=== PATIENT | male | born 1960 | race American Indian/Alaskan Native ===

== ENCOUNTER 2016-08-30 12:39 | Emergency (ER) | payer MEDICAID | END 2016-08-30 13:50 | disposition left against medical advice (07) | LOC: ED 12:39 | DX: M54.9 Dorsalgia, unspecified (principal); Z53.21 Procedure and treatment not carried out due to patient leaving prior to being seen by health care provider ==

== ENCOUNTER 2016-10-01 04:19 | Emergency (ER) | payer MEDICAID ==
[2016-10-01 05:16] LABS: Basophils % (Auto) 0.4 % (0.0-1.8); Eosinophils % (Auto) 4.3 % (0.0-4.3); Hematocrit 47.8 % (35.5-45.6); Hemoglobin 16.3 gm/dl (11.8-15.2); Mean Corpuscular HGB Conc 34 % (32-34); Mean Corpuscular Hemoglobin 31 pg (28-32); Mean Corpuscular Volume 91 fl (84-94); Platelet Count 169 K/mm3 (140-440); Red Blood Count 5.27 M/mm3 (3.65-5.03); Red Cell Distribution Width 13.6 % (13.2-15.2); White Blood Count 6.6 K/mm3 (4.5-11.0)
[2016-10-01 05:38] LABS: Alanine Aminotransferase 22 units/L (7-56); Albumin 3.8 g/dL (3.9-5); Albumin/Globulin Ratio 1.3 %; Alkaline Phosphatase 83 units/L (35-129); Anion Gap 21 mmol/L; BUN/Creatinine Ratio 13.75; Blood Urea Nitrogen 11 mg/dL (9-20); Calcium 8.7 mg/dL (8.4-10.2); Carbon Dioxide 19 mmol/L (22-30); Chloride 100.8 mmol/L (98-107); Glucose 139 mg/dL (75-100); Lipase 42 units/L (13-60); Potassium 3.7 mmol/L (3.6-5.0); Sodium 137 mmol/L (137-145); Total Protein 6.8 g/dL (6.3-8.2)
[2016-10-01 06:15] LABS: Bilirubin,Urine NEG (Negative); Blood,Urine SM (Negative); Ketones,Urine NEG (Negative); Leukocyte Esterase,Urine NEG (Negative); Nitrite,Urine NEG (Negative); Protein,Urine <15 mg/dL mg/dL (Negative); Urobilinogen,Urine < 2.0 mg/dL (<2.0)
--- NOTE | 2016-10-01 08:11 | Emergency Department Report ---
ED Abdominal Pain HPI - General Chief Complaint: Abdominal Pain Stated Complaint: ABDOMINAL PAIN Time Seen by Provider: 10/01/16 07:54 Source: patient, family Mode of arrival: Ambulatory Limitations: No Limitations - History of Present Illness Initial Comments: Patient here complaining of abdominal pain since yesterday. He said he had episode of stool. Patient says she is feeling bloated but he has bowel movement. He said he went to [facility] [place] yesterday for symptoms without any improvement. Denies any fever or chills. Pain is 10 out of 10 located all over. Patient is a history of pancreatitis. Denies any nausea vomiting. He said he does not drink alcohol any more since he found out that he had pancreatitis. Denies blood in stool or recent travel outside the country. Patient has a history of COPD diabetes acid reflux and hypertension. He also had pancreatitis increased cholesterol and chronic back and left knee pain. He had a pancreatic stent placed in July 2013 at [facility]. He said they didn't do anything at [facility] yesterday and he is here for follow-up because he is not feeling better. She has been here multiple time for abdominal pain complaints and pain in various places. MD Complaint: abdominal pain -: year(s) Location: diffuse Radiation: none Migration to: no migration Severity: severe Severity scale (0 -10): 10 Quality: aching, burning Improves With: nothing Worsens With: movement Context: other (this is chronic for patient) Associated Symptoms: diarrhea. denies: nausea, vomiting, fever, chills, constipation, dysuria, hematemesis, hematochezia, melena, hematuria, anorexia, syncope - Related Data Home Medications Medication Instructions Recorded Confirmed Last Taken Glimepiride [Amaryl] 2 mg PO QAM 03/14/14 02/21/16 1 Day Ago Albuterol Sulfate [Proventil HFA] 1 - 2 puff IH Q4H PRN 11/16/14 02/21/16 1 Day Ago Losartan [Cozaar] 50 mg PO QDAY 11/16/14 02/21/16 1 Day Ago Mometasone Furoate [Nasonex] 2 spray NS QDAY 03/17/15 02/21/16 1 Day Ago Loratadine [Claritin] 10 mg PO DAILY 08/05/15 02/21/16 1 Day Ago Tamsulosin [Flomax] 0.4 mg PO QDAY 09/05/15 02/21/16 1 Day Ago Budesoni/Formotero 160-4.5(Nf) 2 puff IH BID 02/21/16 02/21/16 1 Day Ago [Symbicort 160-4.5 (Nf)] Finasteride [Proscar] 5 mg PO QDAY 02/21/16 02/21/16 1 Day Ago Omeprazole 20 mg PO Q12HR 02/21/16 02/21/16 1 Day Ago buPROPion SR [Wellbutrin SR] 150 mg PO BID 02/21/16 02/21/16 1 Day Ago Previous Rx's Medication Instructions Recorded Last Taken Type Oxycodone HCl/Acetaminophen 1 each PO TID PRN #20 tablet 09/05/15 1 Day Ago Rx [Percocet 10/325 mg] Zolpidem [Ambien] 10 mg PO QHS #7 tab 12/03/15 1 Day Ago Rx traMADol [Ultram 50 MG tab] 50 mg PO Q6HR PRN #12 tablet 10/01/16 Unknown Rx Allergies Allergy/AdvReac Type Severity Reaction Status Date / Time aspirin Allergy Shortness Verified 05/22/15 16:44 of Breath ketorolac tromethamine Allergy Shortness Verified 05/22/15 16:44 [From Toradol] of Breath Penicillins Allergy Unknown Verified 05/22/15 16:44 ED Review of Systems ROS: Stated complaint: ABDOMINAL PAIN Other details as noted in HPI Comment: All other systems reviewed and negative Constitutional: denies: chills, fever ENT: denies: throat pain Respiratory: no symptoms reported Cardiovascular: denies: chest pain, palpitations, edema, syncope Gastrointestinal: abdominal pain, diarrhea. denies: nausea, vomiting, constipation, hematemesis, melena, hematochezia Genitourinary: denies: urgency, dysuria, frequency, hematuria, discharge, testicular pain, testicular mass Skin: denies: rash Neurological: denies: headache, weakness, numbness, paresthesias, confusion, abnormal gait, vertigo ED Past Medical Hx - Past Medical History Previous Medical History?: Yes Hx Hypertension: Yes Hx Diabetes: Yes Hx GERD: Yes Hx COPD: Yes Additional medical history: pancreatitis, hyperlipidemia, Chronic Back Pain, Left Knee pain - Surgical History Past Surgical History?: Yes Additional Surgical History: Pancreatic stent july 2013/ done at [facility] - Family History Family history: hypertension - Social History Smoking Status: Current Every Day Smoker Substance Use Type: None - Medications Home Medications: Home Medications Medication Instructions Recorded Confirmed Last Taken Type Glimepiride [Amaryl] 2 mg PO QAM 03/14/14 02/21/16 1 Day Ago History Albuterol Sulfate [Proventil HFA] 1 - 2 puff IH Q4H PRN 11/16/14 02/21/16 1 Day Ago History Losartan [Cozaar] 50 mg PO QDAY 11/16/14 02/21/16 1 Day Ago History Mometasone Furoate [Nasonex] 2 spray NS QDAY 03/17/15 02/21/16 1 Day Ago History Loratadine [Claritin] 10 mg PO DAILY 08/05/15 02/21/16 1 Day Ago History Oxycodone HCl/Acetaminophen 1 each PO TID PRN #20 tablet 09/05/15 02/21/16 1 Day Ago Rx [Percocet 10/325 mg] Tamsulosin [Flomax] 0.4 mg PO QDAY 09/05/15 02/21/16 1 Day Ago History Zolpidem [Ambien] 10 mg PO QHS #7 tab 12/03/15 02/21/16 1 Day Ago Rx Budesoni/Formotero 160-4.5(Nf) 2 puff IH BID 02/21/16 02/21/16 1 Day Ago History [Symbicort 160-4.5 (Nf)] Finasteride [Proscar] 5 mg PO QDAY 02/21/16 02/21/16 1 Day Ago History Omeprazole 20 mg PO Q12HR 02/21/16 02/21/16 1 Day Ago History buPROPion SR [Wellbutrin SR] 150 mg PO BID 02/21/16 02/21/16 1 Day Ago History traMADol [Ultram 50 MG tab] 50 mg PO Q6HR PRN #12 tablet 10/01/16 Unknown Rx ED Physical Exam - General Limitations: No Limitations General appearance: alert, in no apparent distress - Head Head exam: Present: atraumatic, normocephalic, normal inspection - Eye Eye exam: Present: normal appearance, PERRL, EOMI Pupils: Present: normal accommodation - ENT ENT exam: Present: normal exam, normal orophraynx, mucous membranes moist, TM's normal bilaterally, normal external ear exam - Neck Neck exam: Present: normal inspection, full ROM. Absent: tenderness, meningismus, lymphadenopathy - Respiratory Respiratory exam: Present: normal lung sounds bilaterally. Absent: respiratory distress, chest wall tenderness, accessory muscle use - Cardiovascular Cardiovascular Exam: Present: normal rhythm, tachycardia, normal heart sounds - GI/Abdominal GI/Abdominal exam: Present: soft, distended, tenderness, normal bowel sounds. Absent: guarding, rebound, rigid, hyperactive bowel sounds, organomegaly, mass, bruit, pulsatile mass, hernia - Extremities Exam Extremities exam: Present: normal inspection, full ROM, normal capillary refill. Absent: tenderness, pedal edema, joint swelling, calf tenderness - Back Exam Back exam: Present: normal inspection, full ROM. Absent: tenderness, CVA tenderness (R), CVA tenderness (L), muscle spasm, paraspinal tenderness, vertebral tenderness, rash noted - Neurological Exam Neurological exam: Present: alert, oriented X3, normal gait - Psychiatric Psychiatric exam: Present: normal affect, normal mood - Skin Skin exam: Present: warm, dry, intact, normal color. Absent: rash ED Course Vital Signs 10/01/16 10/01/16 10/01/16 04:26 08:43 10:00 Temperature 97.8 F Pulse Rate 103 H Respiratory 18 16 16 Rate Blood Pressure 133/95 Blood Pressure 133/95 [Left] O2 Sat by Pulse 100 Oximetry 10/01/16 11:11 Temperature Pulse Rate 106 H Respiratory 18 Rate Blood Pressure Blood Pressure 164/81 [Left] O2 Sat by Pulse 97 Oximetry - Reevaluation(s) Reevaluation #1: 10/01/16 10:35 Patient stable throughout ED course: CT scan done and when comparing to CT scan of the abdomen from 2016 there are no significant changes. Lab Values stable. Scan was given morphine at 4 mg increments to a total of 8 mg IV and Zofran 4 mg IV. Reevaluation of abdomen, patient said he feels better and no facial grimacing noted with palpation of abdomen. ED Medical Decision Making - Lab Data Result diagrams: 10/01/16 04:58 10/01/16 04:58 Lab Results 05/19/17 05/19/17 05/19/17 Range/Units 04:58 04:58 05:30 WBC 6.6 (4.5-11.0) K/mm3 RBC 5.27 H (3.65-5.03) M/mm3 Hgb 16.3 H (11.8-15.2) gm/dl Hct 47.8 H (35.5-45.6) % MCV 91 (84-94) fl MCH 31 (28-32) pg MCHC 34 (32-34) % RDW 13.6 (13.2-15.2) % Plt Count 169 (140-440) K/mm3 Lymph % (Auto) 29.3 (13.4-35.0) % Duc[place]ne % (Auto) 9.5 H (0.0-7.3) % Eos % (Auto) 4.3 (0.0-4.3) % Baso % (Auto) 0.4 (0.0-1.8) % Lymph # 1.9 (1.2-5.4) K/mm3 Duchesne # 0.6 (0.0-0.8) K/mm3 Eos # 0.3 (0.0-0.4) K/mm3 Baso # 0.0 (0.0-0.1) K/mm3 Seg Neutrophils % 56.5 (40.0-70.0) % Seg Neutrophils # 3.7 (1.8-7.7) K/mm3 Sodium 137 (137-145) mmol/L Potassium 3.7 (3.6-5.0) mmol/L Chloride 100.8 (98-107) mmol/L Carbon Dioxide 19 L (22-30) mmol/L Anion Gap 21 mmol/L BUN 11 (9-20) mg/dL Creatinine 0.8 (0.8-1.5) mg/dL Estimated GFR > 60 ml/min BUN/Creatinine Ratio 13.75 % Glucose 139 H (75-100) mg/dL Calcium 8.7 (8.4-10.2) mg/dL Total Bilirubin 0.50 (0.1-1.2) mg/dL AST 16 (5-40) units/L ALT 22 (7-56) units/L Alkaline Phosphatase 83 (35-129) units/L Total Protein 6.8 (6.3-8.2) g/dL Albumin 3.8 L (3.9-5) g/dL Albumin/Globulin Ratio 1.3 % Lipase 42 (13-60) units/L Urine Color Yellow (Yellow) Urine Turbidity Clear (Clear) Urine pH 5.0 (5.0-7.0) Ur Specific Lowell 1.009 (1.003-1.030) Urine Protein <15 mg/dl (Negative) mg/dL Urine Glucose (UA) Neg (Negative) mg/dL Urine Ketones Neg (Negative) mg/dL Urine Blood Sm (Negative) Urine Nitrite Neg (Negative) Urine Bilirubin Neg (Negative) Urine Urobilinogen < 2.0 (<2.0) mg/dL Ur Leukocyte Esterase Neg (Negative) Urine WBC (Auto) 1.0 (0.0-6.0) /HPF Urine RBC (Auto) 1.0 (0.0-6.0) /HPF U Epithel Cells (Auto) 1.0 (0-13.0) /HPF - Radiology Data Radiology results: report reviewed CT scan of the abdomen and pelvis today reveal hypodensity of the head of the pancreas measuring 2.8 cm in diameter without significant interval changes from 2016. No dilatation of the pancreas and common bile duct. Hypodensity in the tail of the pancreas measuring 1.8 cm in diameter without interval changes from 2016. He has since had a biopsy done at [facility] and he said there was no acute onset. He has peripancreatic adipose tissue which appears normal. No mass of the adrenal glands. Normal kidneys and bladder. Prostate enlarged but no changes from 2016. No free intraperitoneal fluid or air no evidence of edema past. Seromuscular week abdominal aorta without aneurysm and findings in June 2015 was the same .normal appendix. - Medical Decision Making ED course: Patient here complaining of abdominal pain after being seen at [facility] midw yesterday. He had a couple bouts of diarrhea stool. CT scan today reveals no acute findings compared to CT scan from June 2015. Lipase is normal and other lab work with stable findings. I discussed both the CT scan of abdomen and pelvis with patient, come. CT scan from [address] scan today. He Did get IV contrast today but his BUN and creatinine was normal and he is tolerating oral liquids good. Prior to discharge the patient told me that he is followed by Surgery, GI doctor at [facility] and he goes every 6 months. He told me that they did a biopsy of his pancreatitis since [address] scan and it didn 't show anything that was normal. She should also have a primary care physician which she is following. Labs was all discussed with patient. She received morphine 8 mg total and 4 mg increments for abdominal pain via IV and also 4 mg of IV Zofran. Patient had no episode of diarrhea or vomiting and emergency room. Abdominal pain has subsided to 2 out of 10. I discussed with patient that he needs to follow-up at [facility] as he usually does. Patient discharged home with prescription for Ultram. This case was discussed with Dr. Brown who is the attending physician in emergency room. Critical care attestation.: If time is entered above; I have spent that time in minutes in the direct care of this critically ill patient, excluding procedure time. ED Disposition Clinical Impression: Liver cyst, Pancreatic cyst, Encounter for smoking cessation counseling Abdominal pain Qualifiers: Abdominal location: generalized Qualified Code(s): R10.84 - Generalized abdominal pain Chronic pancreatitis Qualifiers: Pancreatitis type: unspecified pancreatitis type Qualified Code(s): K86.1 - Other chronic pancreatitis Disposition: DISCHARGED TO HOME OR SELFCARE Is pt being admited?: No Does the pt Need Aspirin: No Condition: Stable Instructions: How to Stop Smoking (ED), Pancreatitis (ED), Abdominal Pain (ED) Additional Instructions: Continue Follow-up with your visit [facility]hospital at 6 month intervals. He can take Ultram for pain. Follow-up with primary care physician in 3 days Keep Follow-up appointment at [facility] as discussed. Stop smoking Prescriptions: traMADol [Ultram 50 MG tab] 50 mg PO Q6HR PRN #12 tablet PRN Reason: Pain Referrals: PRIMARY CARE, [Primary Care Provider] - 3-5 Days Forms: Work/School Release Form(ED)
[2016-10-01] MEDS ORDERED: NACL ONE (08:25)
[2016-10-01] MEDS ORDERED: ZOFRAN IV ONE (08:38)
[2016-10-01] MEDS ORDERED: MORPHINE IV ONE ×2 (08:38→09:56)
--- NOTE | 2016-10-01 09:38 | Cat Scan Report ---
CT scan of abdomen and pelvis with IV contrast: Compared to 07/06/15. History: Abdominal pain. Findings: Normal lung bases. No pleural or pericardial effusion. Circumscribed hypodensities in the liver suggestive of cysts without interval change. Normal gallbladder. Normal spleen. Circumscribed hypodensity at head of pancreas measuring 2.9 cm in diameter without significant interval change. No dilatation of pancreatic or common bile duct. Hypodensity in the tail of pancreas measuring 1.8 cm in diameter without interval change. Peripancreatic adipose tissue appears normal. No mass of the adrenal glands. Normal kidney parenchyma and bladder. No interval change in size of prostate No free intraperitoneal fluid or air. No evidence of adenopathy. Atherosclerotic abdominal aorta without aneurysm. Normal appendix. Impression: Findings as detailed above. No significant interval change.
[2016-10-01 11:12] VITALS: BP 164/81
== END 2016-10-01 11:11 | disposition home or self-care (01) ==
LOC: ED 04:19
DX: K76.89 Other specified diseases of liver (principal); K86.2 Cyst of pancreas; R10.84 Generalized abdominal pain; K86.1 Other chronic pancreatitis; E11.9 Type 2 diabetes mellitus without complications; K21.9 Gastro-esophageal reflux disease without esophagitis; J44.9 Chronic obstructive pulmonary disease, unspecified; I10 Essential (primary) hypertension; G89.29 Other chronic pain; F17.200 Nicotine dependence, unspecified, uncomplicated; Z88.6 Allergy status to analgesic agent; Z88.0 Allergy status to penicillin; Z88.8 Allergy status to other drugs, medicaments and biological substances
CPT/HCPCS: 36415; 74177; 80053; 81001; 83690; 85025; 96374; 96375; 96376; 99284; J2270; J2405; Q9967

== ENCOUNTER 2017-03-29 02:28 | Emergency (ER) | payer MEDICAID ==
[2017-03-29 04:22] LABS: Basophils % (Auto) 0.7 % (0.0-1.8); Eosinophils % (Auto) 2.1 % (0.0-4.3); Hematocrit 45.7 % (35.5-45.6); Mean Corpuscular HGB Conc 35 % (32-34); Mean Corpuscular Hemoglobin 33 pg (28-32); Mean Corpuscular Volume 93 fl (84-94); Platelet Count 201 K/mm3 (140-440); Red Blood Count 4.89 M/mm3 (3.65-5.03); White Blood Count 10.4 K/mm3 (4.5-11.0)
[2017-03-29 04:37] LABS: Bilirubin,Urine NEG (Negative); Blood,Urine SM (Negative); Ketones,Urine NEG (Negative); Leukocyte Esterase,Urine NEG (Negative); Mucus,Urine FEW /HPF; Nitrite,Urine NEG (Negative)
[2017-03-29 04:39] LABS: Alanine Aminotransferase 18 units/L (7-56); Albumin 4.2 g/dL (3.9-5); Albumin/Globulin Ratio 1.7 %; Alkaline Phosphatase 92 units/L (35-129); Anion Gap 17 mmol/L; BUN/Creatinine Ratio 13; Blood Urea Nitrogen 9 mg/dL (9-20); Calcium 9.4 mg/dL (8.4-10.2); Carbon Dioxide 26 mmol/L (22-30); Chloride 101.5 mmol/L (98-107); Glucose 126 mg/dL (75-100); Lipase 78 units/L (13-60); Potassium 3.7 mmol/L (3.6-5.0); Sodium 141 mmol/L (137-145); Total Protein 6.7 g/dL (6.3-8.2)
[2017-03-29] MEDS ORDERED: DILAUDID IV ONE ×2 (08:35→10:59)
[2017-03-29] MEDS ORDERED: ZOFRAN IV ONE (08:35)
[2017-03-29] MEDS ORDERED: NACL 0.9% 1000 ML 1,000 ML IV ONE (08:42)
--- NOTE | 2017-03-29 08:42 | Emergency Department Report ---
HPI - General Chief Complaint: Abdominal Pain Time Seen by Provider: 03/29/17 08:20 - HPI HPI: This is a 57-year-old -Cypriot male presents to the emergency department , dropped off by a friend, with complaint of a 4-5 day history of some upper abdominal pain, nausea without vomiting. For the past 2-3 days, the patient has also had some rectal pain. He says that he has a history of this secondary to an enlarged prostate and says that usually he is able to put some lidocaine gel towards the rectum with some relief of his pain but at this time it has not improved. He denies any constipation, diarrhea, penile discharge, dysuria, fever, chest pain or shortness of breath. He did say that he had some sweats going on. He wanted to come in sooner but had to take care of his sick . Once she improved he was able to come in today to be seen. His primary care physician is Dr. Alberts, his remote mortgage underwriter is Dr. martel, and his urologist is a Dr. Betty Plasencia. No recent travel or sick contacts at home. He has a past medical history for COPD, diabetes, GERD, hypertension, chronic pancreatitis, hyperlipidemia. ED Past Medical Hx - Past Medical History Previous Medical History?: Yes Hx Hypertension: Yes Hx Diabetes: Yes Hx GERD: Yes Hx COPD: Yes Additional medical history: pancreatitis, hyperlipidemia, Chronic Back Pain, Left Knee pain - Surgical History Past Surgical History?: Yes Additional Surgical History: Pancreatic stent july 2013/ done at [place] - Social History Smoking Status: Current Every Day Smoker Substance Use Type: None - Medications Home Medications: Home Medications Medication Instructions Recorded Confirmed Last Taken Type Glimepiride [Amaryl] 2 mg PO QAM 03/14/14 02/21/16 1 Day Ago History Albuterol Sulfate [Proventil HFA] 1 - 2 puff IH Q4H PRN 11/16/14 02/21/16 1 Day Ago History Losartan [Cozaar] 50 mg PO QDAY 11/16/14 02/21/16 1 Day Ago History Mometasone Furoate [Nasonex] 2 spray NS QDAY 03/17/15 02/21/16 1 Day Ago History Loratadine [Claritin] 10 mg PO DAILY 08/05/15 02/21/16 1 Day Ago History Oxycodone HCl/Acetaminophen 1 each PO TID PRN #20 tablet 09/05/15 02/21/16 1 Day Ago Rx [Percocet 10/325 mg] Tamsulosin [Flomax] 0.4 mg PO QDAY 09/05/15 02/21/16 1 Day Ago History Zolpidem [Ambien] 10 mg PO QHS #7 tab 12/03/15 02/21/16 1 Day Ago Rx Budesoni/Formotero 160-4.5(Nf) 2 puff IH BID 02/21/16 02/21/16 1 Day Ago History [Symbicort 160-4.5 (Nf)] Finasteride [Proscar] 5 mg PO QDAY 02/21/16 02/21/16 1 Day Ago History Omeprazole 20 mg PO Q12HR 02/21/16 02/21/16 1 Day Ago History buPROPion SR [Wellbutrin SR] 150 mg PO BID 02/21/16 02/21/16 1 Day Ago History HYDROcodone/APAP 5-325 [Hazel 1 each PO Q6HR PRN #12 tablet 03/29/17 Unknown Rx 5/325] Ondansetron [Zofran Odt] 4 mg PO Q8H PRN #10 tab.rapdis 03/29/17 Unknown Rx traMADol [Ultram 50 MG tab] 50 mg PO Q6HR PRN #10 tablet 03/29/17 Unknown Rx ED Review of Systems ROS: Stated complaint: STOMACH,ANAL,PENIS PAIN Other details as noted in HPI Comment: All other systems reviewed and negative Constitutional: diaphoresis. denies: chills, fever Eyes: denies: eye pain, eye discharge, vision change ENT: denies: ear pain, throat pain Respiratory: denies: cough, shortness of breath, wheezing Cardiovascular: denies: chest pain, palpitations Gastrointestinal: abdominal pain, nausea. denies: vomiting Genitourinary: other (rectal pain). denies: dysuria, discharge Musculoskeletal: denies: back pain, joint swelling, arthralgia Skin: denies: rash, lesions Neurological: denies: headache, weakness, paresthesias Physical Exam - Physical Exam Vital Signs: Vital Signs 03/29/17 03:31 Temperature 98.1 F Pulse Rate 88 Respiratory 20 Rate Blood Pressure 141/90 O2 Sat by Pulse 98 Oximetry Physical Exam: GENERAL: The patient is well-developed well-nourished. HENT: Normocephalic. Atraumatic. Patient has moist mucous membranes. EYES: Extraocular motions are intact. Pupils equal reactive to light bilaterally. NECK: Supple. Trachea is midline. CHEST/LUNGS: Clear to auscultation. There is no respiratory distress noted. HEART/CARDIOVASCULAR: Regular. There is no tachycardia. There is no gallop rub or murmur. ABDOMEN: Abdomen is soft. There is some upper abdominal tenderness to palpation. No guarding or rebound tenderness. Patient has normal bowel sounds. There is no abdominal distention. SKIN: Skin is warm and dry. NEURO: The patient is awake, alert, and oriented. The patient is cooperative. The patient has no focal neurologic deficits. The patient has normal speech. MUSCULOSKELETAL: There is no tenderness or deformity. There is no limitation range of motion. There is no evidence of acute injury. RECTAL: There is a very small nonthrombosed external hemorrhoid. Otherwise no mass or lesion seen. ED Course Vital Signs 03/29/17 03:31 Temperature 98.1 F Pulse Rate 88 Respiratory 20 Rate Blood Pressure 141/90 O2 Sat by Pulse 98 Oximetry ED Medical Decision Making - Lab Data Result diagrams: 03/29/17 03:51 03/29/17 Unknown - Radiology Data Radiology results: report reviewed CT scan of abdomen and pelvis with IV contrast: History: abdominal pain, rectal pain. Findings: Normal lung bases. No pleural pericardial effusion. Multiple hypodensities in the liver without significant interval change. Normal gallbladder and spleen. Circumscribed well-defined hypodensity head of the pancreas and tail of the pancreas without interval change in size and configuration. No peripancreatic abnormality. Spleen appears normal. Normal adrenals kidneys and bladder. No free intraperitoneal fluid or air. No evidence of adenopathy. Gaseous colon with moderate volume stool in colon. No evidence of appendicitis or diverticulitis. Impression: No significant interval change compared to previous study. Findings as detailed above - Medical Decision Making 57-year-old male presents with a few days of upper abdominal pain and some rectal pain. Labs are mostly unremarkable. CT of the abdomen and pelvis does not show any significant acute process. There are some chronic incidental findings. There is no mention of any abnormalities regarding the prostate. He was given pain and nausea medication in the emergency department. He was reevaluated multiple times of her multiple hours and is feeling improved. He has good follow-up with primary care, urology and gastroenterology. He was discharged home with encouragement to follow up with these physicians, pain and nausea medication. He will return to the ER with any worsening of symptoms or any acute distress. - Differential Diagnosis pancreatitis, cholecystitis, gastritis, BPH, diverticulitis Critical Care Time: No Critical care attestation.: If time is entered above; I have spent that time in minutes in the direct care of this critically ill patient, excluding procedure time. ED Disposition Clinical Impression: Nausea without vomiting, Rectal pain Abdominal pain Qualifiers: Abdominal location: upper abdomen, unspecified Qualified Code(s): R10.10 - Upper abdominal pain, unspecified Disposition: - TO HOME OR SELFCARE Is pt being admited?: No Condition: Stable Instructions: Acute Nausea and Vomiting (ED), Abdominal Pain (ED) Additional Instructions: Please follow-up with your primary care physician, remote mortgage underwriter, and urologist, as needed. Return to the emergency Department with any worsening of your symptoms or any acute distress. You have been prescribed a medication that is sedating and therefore should not be taken prior to driving, working, and responsible for children and in no way should be mixed with alcohol of any quantity. Prescriptions: HYDROcodone/APAP 5-325 [Hazel 5/325] 1 each PO Q6HR PRN #12 tablet PRN Reason: Pain Ondansetron [Zofran Odt] 4 mg PO Q8H PRN #10 tab.rapdis PRN Reason: Nausea traMADol [Ultram 50 MG tab] 50 mg PO Q6HR PRN #10 tablet PRN Reason: Pain Referrals: PRIMARY MD DANA [Primary Care Provider] - 3-5 Days NAZ MARTEL MD [Staff Physician] - 3-5 Days Time of Disposition: 10:59
--- NOTE | 2017-03-29 09:55 | Cat Scan Report ---
CT scan of abdomen and pelvis with IV contrast: History: abdominal pain, rectal pain. Findings: Normal lung bases. No pleural pericardial effusion. Multiple hypodensities in the liver without significant interval change. Normal gallbladder and spleen. Circumscribed well-defined hypodensity head of the pancreas and tail of the pancreas without interval change in size and configuration. No peripancreatic abnormality. Spleen appears normal. Normal adrenals kidneys and bladder. No free intraperitoneal fluid or air. No evidence of adenopathy. Gaseous colon with moderate volume stool in colon. No evidence of appendicitis or diverticulitis. Impression: No significant interval change compared to previous study. Findings as detailed above
[2017-03-29 11:17] VITALS: BP 136/82
== END 2017-03-29 11:23 | disposition home or self-care (01) ==
LOC: ED 02:28
DX: R10.10 Upper abdominal pain, unspecified (principal); R11.2 Nausea with vomiting, unspecified; R10.2 Pelvic and perineal pain; I10 Essential (primary) hypertension; K21.9 Gastro-esophageal reflux disease without esophagitis; J44.9 Chronic obstructive pulmonary disease, unspecified; F17.200 Nicotine dependence, unspecified, uncomplicated
CPT/HCPCS: 36415; 74177; 80053; 81001; 83690; 85025; 96361; 96374; 96375; 99284; J1170; J2405; J7030; Q9967

== ENCOUNTER 2017-04-03 13:52 | Emergency (ER) | payer MEDICAID ==
[2017-04-03 14:44] LABS: Basophils % (Auto) 0.7 % (0.0-1.8); Eosinophils % (Auto) 0.9 % (0.0-4.3); Hematocrit 48.2 % (35.5-45.6); Hemoglobin 16.7 gm/dl (11.8-15.2); Mean Corpuscular HGB Conc 35 % (32-34); Mean Corpuscular Hemoglobin 32 pg (28-32); Mean Corpuscular Volume 94 fl (84-94); Platelet Count 165 K/mm3 (140-440); Red Blood Count 5.14 M/mm3 (3.65-5.03); Red Cell Distribution Width 14.3 % (13.2-15.2); White Blood Count 9.4 K/mm3 (4.5-11.0)
[2017-04-03 15:13] LABS: Alanine Aminotransferase 17 units/L (7-56); Albumin 4.3 g/dL (3.9-5); Albumin/Globulin Ratio 1.7 %; Alkaline Phosphatase 71 units/L (35-129); Anion Gap 18 mmol/L; BUN/Creatinine Ratio 11; Blood Urea Nitrogen 9 mg/dL (9-20); Calcium 9.1 mg/dL (8.4-10.2); Carbon Dioxide 25 mmol/L (22-30); Chloride 100.3 mmol/L (98-107); Glucose 149 mg/dL (75-100); Lipase 54 units/L (13-60); Potassium 3.8 mmol/L (3.6-5.0); Sodium 139 mmol/L (137-145); Total Protein 6.8 g/dL (6.3-8.2)
[2017-04-03 15:25] LABS: Bacteria,Urine 1+ /HPF (Negative); Bilirubin,Urine NEG (Negative); Blood,Urine SM (Negative); Ketones,Urine NEG (Negative); Leukocyte Esterase,Urine NEG (Negative); Nitrite,Urine NEG (Negative); Protein,Urine <15 mg/dL mg/dL (Negative); Urobilinogen,Urine < 2.0 mg/dL (<2.0); WBC,Urine < 1.0 /HPF (0.0-6.0)
[2017-04-03] MEDS ORDERED: MORPHINE IV ONE (20:38)
[2017-04-03] MEDS ORDERED: NACL 0.9% 1000 ML 1,000 ML IV ONE (20:38)
--- NOTE | 2017-04-03 20:41 | Emergency Department Report ---
HPI - General Chief Complaint: Abdominal Pain Time Seen by Provider: 04/03/17 20:13 - HPI HPI: This is a 57-year-old -English male who presents to the emergency department with complaint of continued upper abdominal pain, rectal pain and now he has started having some diarrhea. The patient was here 5 days ago on with similar symptoms. He had a CT scan of the abdomen and pelvis at that time that did not show any significant process. He contacted the manager background, Dr. martel, as he was instructed to do and says he has an appointment on April 18. He has a history of COPD, diabetes, GERD, hypertension, enlarged prostate, hyperlipidemia. He has a history of chronic back pains. He also has a history of chronic pancreatitis. In 2013 the patient was told that he had some type of pancreatic cancer but it was worked up at [facility] and it turned out to be some other condition that required a pancreatic stent placed and he was told that it was not cancerous. He has been taking the pain and nausea medication was prescribed to him without much relief. No recent travel or sick contacts at home. ED Past Medical Hx - Past Medical History Previous Medical History?: Yes Hx Hypertension: Yes Hx Diabetes: Yes Hx GERD: Yes Hx COPD: Yes Additional medical history: pancreatitis, hyperlipidemia, Chronic Back Pain, Left Knee pain - Surgical History Past Surgical History?: Yes Additional Surgical History: Pancreatic stent july 2013/ done at [facility] - Social History Smoking Status: Current Every Day Smoker Substance Use Type: None - Medications Home Medications: Home Medications Medication Instructions Recorded Confirmed Last Taken Type Glimepiride [Amaryl] 2 mg PO QAM 03/14/14 02/21/16 1 Day Ago History ~02/20/16 Albuterol Sulfate [Proventil HFA] 1 - 2 puff IH Q4H PRN 11/16/14 02/21/16 1 Day Ago History ~02/20/16 Losartan [Cozaar] 50 mg PO QDAY 11/16/14 02/21/16 1 Day Ago History ~02/20/16 Mometasone Furoate [Nasonex] 2 spray NS QDAY 03/17/15 02/21/16 1 Day Ago History ~02/20/16 Loratadine [Claritin] 10 mg PO DAILY 08/05/15 02/21/16 1 Day Ago History ~02/20/16 Oxycodone HCl/Acetaminophen 1 each PO TID PRN #20 tablet 09/05/15 02/21/16 1 Day Ago Rx [Percocet 10/325 mg] ~02/20/16 Tamsulosin [Flomax] 0.4 mg PO QDAY 09/05/15 02/21/16 1 Day Ago History ~02/20/16 Zolpidem [Ambien] 10 mg PO QHS #7 tab 12/03/15 02/21/16 1 Day Ago Rx ~02/20/16 Budesoni/Formotero 160-4.5(Nf) 2 puff IH BID 02/21/16 02/21/16 1 Day Ago History [Symbicort 160-4.5 (Nf)] ~02/20/16 Finasteride [Proscar] 5 mg PO QDAY 02/21/16 02/21/16 1 Day Ago History ~02/20/16 Omeprazole 20 mg PO Q12HR 02/21/16 02/21/16 1 Day Ago History ~02/20/16 buPROPion SR [Wellbutrin SR] 150 mg PO BID 02/21/16 02/21/16 1 Day Ago History ~02/20/16 HYDROcodone/APAP 5-325 [[place] 1 each PO Q6HR PRN #12 tablet 03/29/17 Unknown Rx 5/325] Ondansetron [Zofran Odt] 4 mg PO Q8H PRN #10 tab.rapdis 03/29/17 Unknown Rx traMADol [Ultram 50 MG tab] 50 mg PO Q6HR PRN #10 tablet 03/29/17 Unknown Rx ED Review of Systems ROS: Stated complaint: ABD PAIN/BACK PAIN Other details as noted in HPI Comment: All other systems reviewed and negative Constitutional: denies: chills, fever Eyes: denies: eye pain, eye discharge, vision change ENT: denies: ear pain, throat pain Respiratory: denies: cough, shortness of breath, wheezing Cardiovascular: denies: chest pain, palpitations Gastrointestinal: abdominal pain, nausea, diarrhea Genitourinary: denies: dysuria, discharge Musculoskeletal: denies: joint swelling, arthralgia Skin: denies: rash, lesions Neurological: denies: headache, weakness, paresthesias Physical Exam - Physical Exam Vital Signs: Vital Signs 04/03/17 04/03/17 04/03/17 14:11 18:50 19:48 Temperature 99 F 98.3 F Pulse Rate 100 H 95 H 87 Respiratory 16 18 22 Rate Blood Pressure 125/86 Blood Pressure 133/85 124/87 [Right] O2 Sat by Pulse 99 98 99 Oximetry Physical Exam: GENERAL: The patient is well-developed well-nourished. HENT: Normocephalic. Atraumatic. Patient has moist mucous membranes. EYES: Extraocular motions are intact. Pupils equal reactive to light bilaterally. NECK: Supple. Trachea is midline. CHEST/LUNGS: Clear to auscultation. There is no respiratory distress noted. HEART/CARDIOVASCULAR: Regular. There is no tachycardia. There is no murmur. ABDOMEN: Abdomen is soft. There is some upper abdominal tenderness to palpation. No guarding or rebound tenderness. Patient has normal bowel sounds. There is no abdominal distention. SKIN: There is no rash. There is no edema. There is no diaphoresis. NEURO: The patient is awake, alert, and oriented. The patient is cooperative. The patient has no focal neurologic deficits. The patient has normal speech and gait. MUSCULOSKELETAL: There is no tenderness or deformity. There is no limitation range of motion. There is no evidence of acute injury. ED Course Vital Signs 04/03/17 04/03/17 04/03/17 14:11 18:50 19:48 Temperature 99 F 98.3 F Pulse Rate 100 H 95 H 87 Respiratory 16 18 22 Rate Blood Pressure 125/86 Blood Pressure 133/85 124/87 [Right] O2 Sat by Pulse 99 98 99 Oximetry - Consultations Consultation #1: I spoke to the manager background sld educational aide, Dr. Velazquez, who agrees that the patient could be admitted for recurrent or persistent abdominal pain and failed outpatient treatment and they can start working him up for his continued discomfort. 04/04/17 00:56 ED Medical Decision Making - Lab Data Result diagrams: 04/03/17 14:31 04/03/17 14:31 - Radiology Data Radiology results: image reviewed interpreted by me: Abdominal x-ray shows nonspecific nonobstructive bowel gas. - Medical Decision Making Patient's vital signs and stable throughout his ED course. His labs are unremarkable and do not show any etiology of his symptoms. Abdominal x-ray shows nonspecific nonobstructive bowel gas. He had a CT scan done 5 days ago that also did not show any acute process. However, per the consultation section , I spoke with gastroenterology who agreed with the plan of admission for GI consultation and further workup regarding the abdominal pain. I spoke to the patient regarding this plan and he says that he has financial issues and other obligations at home that he must attend to and therefore cannot do admission. Since the patient does not appear to be in any distress and has had a negative workup thus far, I will not ask him to sign out AGAINST MEDICAL ADVICE. However he understands to return to the emergency Department with any worsening of his symptoms or any acute distress. - Differential Diagnosis pancreatitis, cholecystitis, cholelithiasis, gastritis, colitis Critical Care Time: No Critical care attestation.: If time is entered above; I have spent that time in minutes in the direct care of this critically ill patient, excluding procedure time. ED Disposition Clinical Impression: Rectal pain Abdominal pain Qualifiers: Abdominal location: upper abdomen, unspecified Qualified Code(s): R10.10 - Upper abdominal pain, unspecified Diarrhea Qualifiers: Diarrhea type: unspecified type Qualified Code(s): R19.7 - Diarrhea, unspecified Disposition: DC-01 TO HOME OR SELFCARE Is pt being admited?: No Condition: Stable Instructions: Abdominal Pain (ED) Additional Instructions: Please follow-up with your primary care and manager background physicians as soon as possible. Return to the emergency Department with any worsening of her symptoms or any acute distress. Referrals: PRIMARY MD DANA [Primary Care Provider] - NAZ FISH MD [Staff Physician] - MIGUEL Time of Disposition: 23:10
[2017-04-03 20:57] VITALS: BP 139/80
[2017-04-03] MEDS ORDERED: DILAUDID IV ONE (21:34)
--- NOTE | 2017-04-03 23:46 | XRay Report ---
FINAL REPORT PROCEDURE: Abdomen. TECHNIQUE: Portable AP supine views. HISTORY: Abdominal pain. COMPARISON: No prior studies are available for comparison. FINDINGS: The bowel gas pattern is normal. There are no signs of obstruction. The soft tissues and regional skeleton are unremarkable. IMPRESSION: Normal study.
== END 2017-04-03 23:22 | disposition home or self-care (01) ==
LOC: ED 13:52
DX: K62.89 Other specified diseases of anus and rectum (principal); R19.7 Diarrhea, unspecified; R10.10 Upper abdominal pain, unspecified; I10 Essential (primary) hypertension; E11.9 Type 2 diabetes mellitus without complications; K21.9 Gastro-esophageal reflux disease without esophagitis; J44.9 Chronic obstructive pulmonary disease, unspecified; F17.200 Nicotine dependence, unspecified, uncomplicated; E78.5 Hyperlipidemia, unspecified
CPT/HCPCS: 36415; 74020; 80053; 81001; 83690; 85025; 96361; 96374; 96375; 99284; J1170; J2270; J7030

== ENCOUNTER 2017-09-26 22:49 | Emergency (ER) | payer MEDICAID ==
[2017-09-27 01:07] LABS: Basophils # (Auto) 0.1 K/mm3 (0.0-0.1); Basophils % (Auto) 0.8 % (0.0-1.8); Eosinophils # (Auto) 0.2 K/mm3 (0.0-0.4); Eosinophils % (Auto) 2.2 % (0.0-4.3); Hematocrit 46.6 % (35.5-45.6); Hemoglobin 15.9 gm/dl (11.8-15.2); Lymphocytes # (Auto) 3.3 K/mm3 (1.2-5.4); Lymphocytes % (Auto) 36.6 % (13.4-35.0); Mean Corpuscular HGB Conc 34 % (32-34); Mean Corpuscular Hemoglobin 31 pg (28-32); Mean Corpuscular Volume 91 fl (84-94); Monocytes # (Auto) 0.7 K/mm3 (0.0-0.8); Monocytes % (Auto) 7.7 % (0.0-7.3); Platelet Count 207 K/mm3 (140-440); Red Blood Count 5.15 M/mm3 (3.65-5.03); Red Cell Distribution Width 13.6 % (13.2-15.2)
[2017-09-27 01:26] LABS: Alanine Aminotransferase 15 units/L (7-56); BUN/Creatinine Ratio 13; Blood Urea Nitrogen 9 mg/dL (9-20); Calcium 9.2 mg/dL (8.4-10.2); Hemolysis Index 26
[2017-09-27 02:35] LABS: Bilirubin,Urine NEG (Negative); Blood,Urine SM (Negative); Calcium Oxalate Crystals,Urine 2+; Color,Urine Yellow (Yellow); Mucus,Urine FEW /HPF; Urobilinogen,Urine < 2.0 mg/dL (<2.0)
--- NOTE | 2017-09-27 06:28 | Emergency Department Report ---
ED Abdominal Pain HPI - General Chief Complaint: Abdominal Pain Stated Complaint: ABD/BACK/RT SIDE PAIN N/V Time Seen by Provider: 09/27/17 06:23 Source: patient Mode of arrival: Ambulatory Limitations: No Limitations - History of Present Illness Initial Comments: 57-year-old man presents with upper abdominal pain radiating into his back for the past day, with associated nausea. Pain awoke him from sleep in the middle the night, seems to be localized in the right upper abdomen, but is also in the right flank, and he also feels it in the back. He has a past history of chronic pancreatitis, as well as multiple medical comorbidities, including type 2 diabetes, hypertension, GERD, and COPD. He has had prior gallbladder surgery , but no past history of kidney stones. Chronic pancreatitis with pseudocyst has been diagnosed, not related to alcohol, and sources uncertain, but patient does have lipid disease, and has had high triglycerides, but the last one was only moderately elevated in the 450 range. Pain is moderate to severe, being 8-10 out of 10, is aching, deep and localized in the mid abdomen and flank and back on the right side, not particularly aggravated by food, only modestly aggravated by movement, not relieved by anything. Pain has not been relieved by any [id number] medications. - Related Data Home Medications Medication Instructions Recorded Confirmed Last Taken Glimepiride [Amaryl] 2 mg PO QAM 03/14/14 02/21/16 1 Day Ago ~02/20/16 Albuterol Sulfate [Proventil HFA] 1 - 2 puff IH Q4H PRN 11/16/14 02/21/16 1 Day Ago ~02/20/16 Losartan [Cozaar] 50 mg PO QDAY 11/16/14 02/21/16 1 Day Ago ~02/20/16 Mometasone Furoate [Nasonex] 2 spray NS QDAY 03/17/15 02/21/16 1 Day Ago ~02/20/16 Loratadine [Claritin] 10 mg PO DAILY 08/05/15 02/21/16 1 Day Ago ~02/20/16 Tamsulosin [Flomax] 0.4 mg PO QDAY 09/05/15 02/21/16 1 Day Ago ~02/20/16 Budesoni/Formotero 160-4.5(Nf) 2 puff IH BID 02/21/16 02/21/16 1 Day Ago [Symbicort 160-4.5 (Nf)] ~02/20/16 Finasteride [Proscar] 5 mg PO QDAY 02/21/16 02/21/16 1 Day Ago ~02/20/16 Omeprazole 20 mg PO Q12HR 02/21/16 02/21/16 1 Day Ago ~02/20/16 buPROPion SR [Wellbutrin SR] 150 mg PO BID 02/21/16 02/21/16 1 Day Ago ~02/20/16 Previous Rx's Medication Instructions Recorded Last Taken Type Oxycodone HCl/Acetaminophen 1 each PO TID PRN #20 tablet 09/05/15 1 Day Ago Rx [Percocet 10/325 mg] ~02/20/16 Zolpidem [Ambien] 10 mg PO QHS #7 tab 12/03/15 1 Day Ago Rx ~02/20/16 HYDROcodone/APAP 5-325 [[place] 1 each PO Q6HR PRN #12 tablet 03/29/17 Unknown Rx 5/325] Ondansetron [Zofran Odt] 4 mg PO Q8H PRN #10 tab.rapdis 03/29/17 Unknown Rx traMADol [Ultram 50 MG tab] 50 mg PO Q6HR PRN #10 tablet 03/29/17 Unknown Rx HYDROcodone/APAP 10-325 [[place] 1 each PO Q6HR PRN #30 tablet 09/27/17 Unknown Rx 10/325] Ondansetron [Zofran ODT TAB] 8 mg PO Q8HR #10 tab.rapdis 09/27/17 Unknown Rx Allergies Allergy/AdvReac Type Severity Reaction Status Date / Time aspirin Allergy Shortness Verified 05/22/15 16:44 of Breath ketorolac tromethamine Allergy Shortness Verified 05/22/15 16:44 [From Toradol] of Breath Penicillins Allergy Unknown Verified 05/22/15 16:44 ED Review of Systems ROS: Stated complaint: ABD/BACK/RT SIDE PAIN N/V Other details as noted in HPI ED Past Medical Hx - Past Medical History Previous Medical History?: Yes Hx Hypertension: Yes Hx Diabetes: Yes Hx GERD: Yes Hx COPD: Yes Additional medical history: pancreatitis, hyperlipidemia, Chronic Back Pain, Left Knee pain - Surgical History Past Surgical History?: Yes Additional Surgical History: Pancreatic stent july 2013/ done at [place] - Social History Smoking Status: Never Smoker Substance Use Type: None - Medications Home Medications: Home Medications Medication Instructions Recorded Confirmed Last Taken Type Glimepiride [Amaryl] 2 mg PO QAM 03/14/14 02/21/16 1 Day Ago History ~02/20/16 Albuterol Sulfate [Proventil HFA] 1 - 2 puff IH Q4H PRN 11/16/14 02/21/16 1 Day Ago History ~02/20/16 Losartan [Cozaar] 50 mg PO QDAY 11/16/14 02/21/16 1 Day Ago History ~02/20/16 Mometasone Furoate [Nasonex] 2 spray NS QDAY 03/17/15 02/21/16 1 Day Ago History ~02/20/16 Loratadine [Claritin] 10 mg PO DAILY 08/05/15 02/21/16 1 Day Ago History ~02/20/16 Oxycodone HCl/Acetaminophen 1 each PO TID PRN #20 tablet 09/05/15 02/21/16 1 Day Ago Rx [Percocet 10/325 mg] ~02/20/16 Tamsulosin [Flomax] 0.4 mg PO QDAY 09/05/15 02/21/16 1 Day Ago History ~02/20/16 Zolpidem [Ambien] 10 mg PO QHS #7 tab 12/03/15 02/21/16 1 Day Ago Rx ~02/20/16 Budesoni/Formotero 160-4.5(Nf) 2 puff IH BID 02/21/16 02/21/16 1 Day Ago History [Symbicort 160-4.5 (Nf)] ~02/20/16 Finasteride [Proscar] 5 mg PO QDAY 02/21/16 02/21/16 1 Day Ago History ~02/20/16 Omeprazole 20 mg PO Q12HR 02/21/16 02/21/16 1 Day Ago History ~02/20/16 buPROPion SR [Wellbutrin SR] 150 mg PO BID 02/21/16 02/21/16 1 Day Ago History ~02/20/16 HYDROcodone/APAP 5-325 [[place] 1 each PO Q6HR PRN #12 tablet 03/29/17 Unknown Rx 5/325] Ondansetron [Zofran Odt] 4 mg PO Q8H PRN #10 tab.rapdis 03/29/17 Unknown Rx traMADol [Ultram 50 MG tab] 50 mg PO Q6HR PRN #10 tablet 03/29/17 Unknown Rx HYDROcodone/APAP 10-325 [[place] 1 each PO Q6HR PRN #30 tablet 09/27/17 Unknown Rx 10/325] Ondansetron [Zofran ODT TAB] 8 mg PO Q8HR #10 tab.rapdis 09/27/17 Unknown Rx ED Physical Exam - General Limitations: No Limitations General appearance: alert, in distress - Head Head exam: Present: atraumatic - Eye Eye exam: Present: PERRL, EOMI - ENT ENT exam: Present: normal exam - Neck Neck exam: Present: normal inspection - Respiratory Respiratory exam: Present: normal lung sounds bilaterally. Absent: wheezes, rales, rhonchi, chest wall tenderness - Cardiovascular Cardiovascular Exam: Present: regular rate, normal heart sounds - GI/Abdominal GI/Abdominal exam: Present: soft, tenderness (epigastrium, right upper quadrant , right flank), normal bowel sounds. Absent: guarding, rebound - Rectal Rectal exam: Present: deferred - Extremities Exam Extremities exam: Present: normal inspection. Absent: tenderness - Back Exam Back exam: Present: full ROM, CVA tenderness (R) - Neurological Exam Neurological exam: Present: alert, oriented X3, CN II-XII intact. Absent: motor sensory deficit - Psychiatric Psychiatric exam: Present: normal affect, normal mood - Skin Skin exam: Present: warm, dry ED Course Vital Signs 09/27/17 09/27/17 00:05 08:02 Temperature 97.8 F Pulse Rate 90 73 Respiratory 17 18 Rate Blood Pressure 143/90 Blood Pressure 130/79 [Left] O2 Sat by Pulse 99 97 Oximetry ED Medical Decision Making - Lab Data Result diagrams: 09/27/17 00:51 09/27/17 00:51 - Radiology Data Radiology results: report reviewed (CT scan of abdomen and pelvis without contrast was negative for acute nephrolithiasis, but shows pancreatic pseudocyst , with no other significant intra-abdominal pathology.) - Medical Decision Making Patient has typical findings of abdominal pain, likely related to pseudocyst, although the location of his discomfort today, could be suggestive of urolithiasis, but this was negative on CT scanning. Patient was significantly improved with medication and hydration here, and is stable for discharge. We discussed dietary changes, with bowel rest while he is having acute pain, and healthy diet after which. He will be treated with analgesics with hydrocodone, as well as ondansetron for any returning nausea. He should have recheck in 5-7 days by his physician. - Differential Diagnosis pancreatitis, pancreatitis pseudocyst, ulcer disease, kidney stone Critical Care Time: No Critical care attestation.: If time is entered above; I have spent that time in minutes in the direct care of this critically ill patient, excluding procedure time. ED Disposition Clinical Impression: Chronic pancreatitis Qualifiers: Pancreatitis type: unspecified pancreatitis type Qualified Code(s): K86.1 - Other chronic pancreatitis Disposition: - TO HOME OR SELFCARE Is pt being admited?: No Does the pt Need Aspirin: No Condition: Stable Instructions: Pancreatitis (ED) Prescriptions: HYDROcodone/APAP 10-325 [[place] 10/325] 1 each PO Q6HR PRN #30 tablet PRN Reason: Pain Ondansetron [Zofran ODT TAB] 8 mg PO Q8HR #10 tab.rapdis Referrals: PRIMARY CARE, [Primary Care Provider] - 3-5 Days Time of Disposition: 10:57
[2017-09-27] MEDS ORDERED: NACL 0.9% 1000 ML 1,000 ML IV ONE (06:52)
[2017-09-27] MEDS ORDERED: STADOL IV PRN (06:53)
[2017-09-27] MEDS ORDERED: ZOFRAN ODT PO ONE (06:53)
--- NOTE | 2017-09-27 08:14 | Cat Scan Report ---
CT ABDOMEN PELVIS WITHOUT CONTRAST: HISTORY: Right flank pain, back pain. COMPARISON: 03/29/17. TECHNIQUE: Helical CT in 1.25mm intervals without IV contrast. Sagittal and coronal reconstructions. FINDINGS: Lung bases: Normal. Liver: Scattered liver cysts measuring up to 1.5 cm are unchanged. There is mild fatty infiltration of the liver parenchyma. No obvious mass or surface nodularity. Biliary system: Unremarkable. The gallbladder is contracted. Pancreas: Stable 2.5 cm pseudocyst in the pancreatic head and 2.3 cm pseudocyst in the pancreatic tail. The remainder of the pancreas is unremarkable. Spleen: Normal. Kidneys/ureters/bladder: Normal. Adrenal glands: Normal. Aorta: Mild calcifications. No aneurysm. Intestines: Unremarkable given no oral contrast was administered. Appendix: Normal. Pelvic viscera: Normal. Ascites: None. Adenopathy: None. Musculoskeletal: Intact. IMPRESSION: No acute abdominal process is identified.
[2017-09-27 11:54] VITALS: BP 135/87
== END 2017-09-27 11:01 | disposition home or self-care (01) ==
LOC: ED 22:49
DX: K86.1 Other chronic pancreatitis (principal); I10 Essential (primary) hypertension; E11.9 Type 2 diabetes mellitus without complications; K21.9 Gastro-esophageal reflux disease without esophagitis; J44.9 Chronic obstructive pulmonary disease, unspecified; E78.5 Hyperlipidemia, unspecified; M54.9 Dorsalgia, unspecified; G89.29 Other chronic pain; Z88.0 Allergy status to penicillin; Z88.6 Allergy status to analgesic agent
CPT/HCPCS: 36415; 74176; 80053; 81001; 83690; 85025; 96361; 96374; 99284; J0595; J7030; Q0162

== ENCOUNTER 2017-11-09 20:48 | Emergency (ER) | payer MEDICAID | END 2017-11-09 20:49 | disposition left against medical advice (07) | LOC: ED 20:48 | DX: R10.9 Unspecified abdominal pain (principal); R11.2 Nausea with vomiting, unspecified; Z88.6 Allergy status to analgesic agent; Z88.0 Allergy status to penicillin; Z53.21 Procedure and treatment not carried out due to patient leaving prior to being seen by health care provider ==

== ENCOUNTER 2018-08-19 17:21 | Emergency (ER) | payer MEDICAID ==
--- NOTE | 2018-08-19 17:28 | Emergency Department Report ---
Chief Complaint: Abdominal Pain Stated Complaint: NAUSEA/STOMACH PAIN/COUGH MUCUS Time Seen by Provider: 08/19/18 17:26 - HPI History of Present Illness: n/v and abd pain today also co cough with yellow phlegm no cp no sob pcp none he fired his needs pcp pmh pancreatitis htn quit etoh; had beer 2 w ago chronic back pain- pain clinic DM HPLD copd-active smoker no drugs rx gliperide statin percocet zofran losartan off others bc no pcp mse completed MSE screening note: Focused history and physical exam performed. Due to findings the following was ordered: ED Disposition for MSE Condition: Stable
[2018-08-19 17:30] VITALS: BP 147/89
[2018-08-19] MEDS ORDERED: ZOFRAN ODT PO ONE (17:39)
[2018-08-19 18:05] LABS: Bilirubin,Urine NEG (Negative); Blood,Urine SM (Negative); Color,Urine Yellow (Yellow); Mucus,Urine FEW /HPF; Urobilinogen,Urine < 2.0 mg/dL (<2.0)
[2018-08-19 18:22] LABS: Basophils # (Auto) 0.1 K/mm3 (0.0-0.1); Basophils % (Auto) 1.8 % (0.0-1.8); Eosinophils # (Auto) 0.2 K/mm3 (0.0-0.4); Eosinophils % (Auto) 2.2 % (0.0-4.3); Hematocrit 49.9 % (35.5-45.6); Hemoglobin 17.2 gm/dl (11.8-15.2); Lymphocytes % (Auto) 25.8 % (13.4-35.0); Mean Corpuscular HGB Conc 35 % (32-34); Mean Corpuscular Volume 93 fl (84-94); Monocytes # (Auto) 0.6 K/mm3 (0.0-0.8); Platelet Count 209 K/mm3 (140-440); Red Blood Count 5.39 M/mm3 (3.65-5.03); Red Cell Distribution Width 13.8 % (13.2-15.2)
--- NOTE | 2018-08-19 18:29 | XRay Report ---
PROCEDURE: XR CHEST ROUTINE 2V TECHNIQUE: PA and lateral chest radiographs were obtained. HISTORY: cough COMPARISONS: None. FINDINGS: Heart: Normal. Mediastinum/Vessels: Normal. Lungs/Pleural space: Normal. Bony thorax: No acute osseous abnormality. IMPRESSION: No focal consolidation or effusion. This document is electronically signed by Nayely Nguyễn MD., August 19 2018 06:27:13 PM ET
[2018-08-19 18:45] LABS: Alanine Aminotransferase 26 units/L (7-56); Albumin 4.7 g/dL (3.9-5); BUN/Creatinine Ratio 11; Blood Urea Nitrogen 9 mg/dL (9-20); Hemolysis Index 14
[2018-08-19 18:46] LABS: Bilirubin,Direct < 0.2 mg/dL (0-0.2)
[2018-08-19] MEDS ORDERED: NACL 0.9% 1000 ML 1,000 ML IV ONE (20:21)
[2018-08-19] MEDS ORDERED: ULTRAM PO ONE (20:24)
--- NOTE | 2018-08-19 20:24 | Emergency Department Report ---
ED Abdominal Pain HPI - General Chief Complaint: Abdominal Pain Stated Complaint: NAUSEA/STOMACH PAIN/COUGH MUCUS Time Seen by Provider: 08/19/18 17:26 Source: patient Mode of arrival: Ambulatory Limitations: No Limitations - History of Present Illness Initial Comments: 58-year-old -[place] male with a significant past medical history of diabetes, hyperlipidemia, hypertension, chronic pancreatitis and COPD comes in presenting with abdominal pain and nausea. Patient denies any vomiting. Patient reports he has a history of pancreatitis and did not make his 6 month checkup at [place]. Patient also has a history of chronic back pain and reports she is having pain in his back. Patient reports his out of several of his medications his lip arrived 2 mg daily and simvastatin which is not sure of the dose. He also reports he may need a prescription for his Cozaar 50 mg daily. Patient reports he does not have her primary care provider at this time. He reported to the first medical contact that he was having a cough therefore a chest x-ray was ordered. MD Complaint: abdominal pain Location: epigastric Radiation: none Migration to: no migration Severity scale (0 -10): 5 Quality: aching Consistency: intermittent Improves With: nothing Worsens With: nothing Associated Symptoms: nausea. denies: vomiting, diarrhea, fever, chills, constipation - Related Data Home Medications Medication Instructions Recorded Confirmed Last Taken Mometasone Furoate [Nasonex] 2 spray NS QDAY 03/17/15 02/21/16 1 Day Ago ~02/20/16 Tamsulosin [Flomax] 0.4 mg PO QDAY 09/05/15 02/21/16 1 Day Ago ~02/20/16 Finasteride [Proscar] 5 mg PO QDAY 02/21/16 02/21/16 1 Day Ago ~02/20/16 Omeprazole 20 mg PO Q12HR 02/21/16 02/21/16 1 Day Ago ~02/20/16 Previous Rx's Medication Instructions Recorded Last Taken Type Oxycodone HCl/Acetaminophen 1 each PO TID PRN #20 tablet 09/05/15 1 Day Ago Rx [Percocet 10/325 mg] ~02/20/16 Ondansetron [Zofran ODT TAB] 8 mg PO Q8HR #10 tab.rapdis 09/27/17 Unknown Rx Budesoni/Formotero 160-4.5(Nf) 2 puff IH BID #1 inha 08/19/18 Unknown Rx [Symbicort 160-4.5 (Nf)] Glimepiride [Amaryl] 2 mg PO QAM #30 tablet 08/19/18 Unknown Rx Losartan [Cozaar] 50 mg PO QDAY #30 tablet 08/19/18 Unknown Rx Simvastatin [Zocor] 20 mg PO QHS #30 tablet 08/19/18 Unknown Rx Allergies Allergy/AdvReac Type Severity Reaction Status Date / Time aspirin Allergy Shortness Verified 05/22/15 16:44 of Breath ketorolac tromethamine Allergy Shortness Verified 05/22/15 16:44 [From Toradol] of Breath Penicillins Allergy Unknown Verified 05/22/15 16:44 ED Review of Systems ROS: Stated complaint: NAUSEA/STOMACH PAIN/COUGH MUCUS Other details as noted in HPI Comment: All other systems reviewed and negative Constitutional: denies: chills, fever Eyes: denies: eye pain, eye discharge, vision change ENT: denies: ear pain, throat pain Respiratory: denies: cough, shortness of breath, wheezing Cardiovascular: denies: chest pain, palpitations Endocrine: no symptoms reported Gastrointestinal: abdominal pain, nausea. denies: vomiting Genitourinary: denies: urgency, dysuria Musculoskeletal: denies: back pain, joint swelling, arthralgia Skin: denies: rash, lesions Neurological: denies: headache, weakness, paresthesias Psychiatric: denies: anxiety, depression Hematological/Lymphatic: denies: easy bleeding, easy bruising ED Past Medical Hx - Past Medical History Previous Medical History?: Yes Hx Hypertension: Yes Hx Diabetes: Yes Hx GERD: Yes Hx COPD: Yes Additional medical history: pancreatitis, hyperlipidemia, Chronic Back Pain, Left Knee pain - Surgical History Past Surgical History?: No Additional Surgical History: Pancreatic stent july 2013/ done at [place] - Social History Smoking Status: Never Smoker Substance Use Type: None - Medications Home Medications: Home Medications Medication Instructions Recorded Confirmed Last Taken Type Mometasone Furoate [Nasonex] 2 spray NS QDAY 03/17/15 02/21/16 1 Day Ago History ~02/20/16 Oxycodone HCl/Acetaminophen 1 each PO TID PRN #20 tablet 09/05/15 02/21/16 1 Day Ago Rx [Percocet 10/325 mg] ~02/20/16 Tamsulosin [Flomax] 0.4 mg PO QDAY 09/05/15 02/21/16 1 Day Ago History ~02/20/16 Finasteride [Proscar] 5 mg PO QDAY 02/21/16 02/21/16 1 Day Ago History ~02/20/16 Omeprazole 20 mg PO Q12HR 02/21/16 02/21/16 1 Day Ago History ~02/20/16 Ondansetron [Zofran ODT TAB] 8 mg PO Q8HR #10 tab.rapdis 09/27/17 Unknown Rx Budesoni/Formotero 160-4.5(Nf) 2 puff IH BID #1 inha 08/19/18 Unknown Rx [Symbicort 160-4.5 (Nf)] Glimepiride [Amaryl] 2 mg PO QAM #30 tablet 08/19/18 Unknown Rx Losartan [Cozaar] 50 mg PO QDAY #30 tablet 08/19/18 Unknown Rx Simvastatin [Zocor] 20 mg PO QHS #30 tablet 08/19/18 Unknown Rx ED Physical Exam - General Limitations: No Limitations General appearance: alert, in no apparent distress - Head Head exam: Present: atraumatic, normocephalic - Eye Eye exam: Present: PERRL, EOMI - ENT ENT exam: Present: mucous membranes moist - Neck Neck exam: Present: normal inspection - Respiratory Respiratory exam: Present: normal lung sounds bilaterally. Absent: respiratory distress - Cardiovascular Cardiovascular Exam: Present: regular rate, normal rhythm. Absent: systolic murmur, diastolic murmur, rubs, gallop - GI/Abdominal GI/Abdominal exam: Present: soft, tenderness (mild tenderness ), normal bowel sounds. Absent: distended, organomegaly - Extremities Exam Extremities exam: Present: normal inspection - Back Exam Back exam: Present: normal inspection - Neurological Exam Neurological exam: Present: alert, oriented X3 - Psychiatric Psychiatric exam: Present: normal affect, normal mood - Skin Skin exam: Present: warm, dry, intact, normal color. Absent: rash ED Course Vital Signs 08/19/18 17:27 Temperature 97.8 F Pulse Rate 97 H Respiratory 18 Rate Blood Pressure 147/89 O2 Sat by Pulse 99 Oximetry ED Medical Decision Making - Lab Data Result diagrams: 08/19/18 18:03 08/19/18 18:03 - Radiology Data Radiology results: report reviewed Patient: NATO STARR MR#: [id number] : 1960 Acct:[id number] Age/Sex: 58 / M ADM Date: 08/19/18 Loc: ED Attending Dr: Ordering Physician: JORGE WAHL Date of Service: 08/19/18 Procedure(s): XR chest routine 2V Accession Number(s): [id number] cc: JORGE WAHL Fluoro Time In Minutes: PROCEDURE: XR CHEST ROUTINE 2V TECHNIQUE: PA and lateral chest radiographs were obtained. HISTORY: cough COMPARISONS: None. FINDINGS: Heart: Normal. Mediastinum/Vessels: Normal. Lungs/Pleural space: Normal. Bony thorax: No acute osseous abnormality. IMPRESSION: No focal consolidation or effusion. This document is electronically signed by Keri Sinclair MD., August 19 2018 06:27:13 PM ET Transcribed By: QF Dictated By: KERI SINCLAIR Electronically Authenticated By: KERI SINCLAIR Signed Date/Time: 08/19/181828 DD/ 51 TD/TT: 08/19/181751 - Medical Decision Making Patient has been evaluated by this provider in fast track. Basic lab work shows the patient is heme concentrated with an glucose of 238 urinalysis is greater than 500 glucose otherwise within normal limits. Chest x-rays stable no acute abnormalities. Will hydrate patient with 1 L of fluids patient has had Zofran in triage. Patient will need to follow up with his GI specialist. Critical care attestation.: If time is entered above; I have spent that time in minutes in the direct care of this critically ill patient, excluding procedure time. ED Disposition Clinical Impression: Chronic pancreatitis, Diabetes 1.5, managed as type 2, Hypertension, Hyperlipidemia Disposition: - TO HOME OR SELFCARE Is pt being admited?: No Does the pt Need Aspirin: No Condition: Stable Instructions: Diabetes Mellitus Type 2 in Adults (ED), Hypertension (ED) Additional Instructions: Please take chronic medication as prescribed. It is very important for you to follow up with the primary care provider [employer] [employer]. Prescriptions: Simvastatin [Zocor] 20 mg PO QHS #30 tablet Glimepiride [Amaryl] 2 mg PO QAM #30 tablet Losartan [Cozaar] 50 mg PO QDAY #30 tablet Budesoni/Formotero 160-4.5(Nf) [Symbicort 160-4.5 (Nf)] 2 puff IH BID #1 inha Referrals: LISA ANGEL MD [Primary Care Provider] - 3-5 Days [facility] [Provider Group] - 3-5 Days [facility] [Provider Group] - 3-5 Days
== END 2018-08-19 23:00 | disposition home or self-care (01) ==
LOC: ED 17:21
DX: K86.1 Other chronic pancreatitis (principal); K21.9 Gastro-esophageal reflux disease without esophagitis; J44.9 Chronic obstructive pulmonary disease, unspecified; G89.29 Other chronic pain; I10 Essential (primary) hypertension; E11.9 Type 2 diabetes mellitus without complications; E78.5 Hyperlipidemia, unspecified; Z88.6 Allergy status to analgesic agent; Z88.0 Allergy status to penicillin
CPT/HCPCS: 36415; 71046; 80048; 80076; 81001; 83690; 85025; 99284; J7030

== ENCOUNTER 2019-01-24 22:47 | Emergency (ER) | payer MEDICAID ==
[2019-01-24 23:27] VITALS: BP 111/77
[2019-01-25 00:10] LABS: Basophils % (Auto) 0.5 % (0.0-1.8); Eosinophils # (Auto) 0.3 K/mm3 (0.0-0.4); Eosinophils % (Auto) 2.9 % (0.0-4.3); Hematocrit 51.6 % (35.5-45.6); Hemoglobin 17.5 gm/dl (11.8-15.2); Lymphocytes # (Auto) 3.8 K/mm3 (1.2-5.4); Lymphocytes % (Auto) 39.3 % (13.4-35.0); Mean Corpuscular HGB Conc 34 % (32-34); Mean Corpuscular Volume 91 fl (84-94); Monocytes # (Auto) 0.7 K/mm3 (0.0-0.8); Monocytes % (Auto) 7.1 % (0.0-7.3); Red Blood Count 5.65 M/mm3 (3.65-5.03); Red Cell Distribution Width 13.3 % (13.2-15.2)
[2019-01-25 00:14] LABS: Alanine Aminotransferase 20 units/L (7-56); Albumin 4.3 g/dL (3.9-5); BUN/Creatinine Ratio 16; Blood Urea Nitrogen 14 mg/dL (9-20); Calcium 9.4 mg/dL (8.4-10.2); Hemolysis Index 17
[2019-01-25 00:23] LABS: Bilirubin,Urine NEG (Negative); Blood,Urine SM (Negative); Color,Urine Yellow (Yellow); Mucus,Urine FEW /HPF; Urobilinogen,Urine < 2.0 mg/dL (<2.0)
[2019-01-25 00:33] LABS: Platelet Count 197 K/mm3 (140-440)
[2019-01-25] MEDS ORDERED: ZOFRAN ONE (02:52)
[2019-01-25] MEDS ORDERED: ZOFRAN IV ONE (03:03)
[2019-01-25] MEDS ORDERED: MORPHINE IV ONE (03:08)
[2019-01-25] MEDS ORDERED: PERCOCET 5/325 PO ONE (03:10)
--- NOTE | 2019-01-25 04:34 | Cat Scan Report ---
CT ABDOMEN AND PELVIS WITHOUT CONTRAST INDICATION: right flank pain CONTRAST: Without IV COMPARISON: 09/27/[address] scans at this location are performed using CT dose reduction for ALARA by means of automated e xposure control. FINDINGS: Lung bases are clear. No pneumoperitoneum is noted. Mild fatty infiltration of the liver is noted with small probable cyst again seen. Small probable right renal cysts are unchanged. No urinar y tract calculi or evidence of obstruction are seen. No evidence of bowel obstruction is noted. Appen franco appears within normal limits. No inflammatory changes are seen. Prostate is mildly enlarged. Smal l right adrenal nodule measuring 11 mm is mildly more prominent in the 9 mm previously but internal d ensity appears to be -12 Hounsfield units consistent with a benign adenoma. The partially calcified c ystic areas in the head and body of the pancreas are unchanged. No pancreatic inflammatory changes ar e seen. No lymphadenopathy is noted. Small fatty umbilical hernia is again seen without bowel. IMPRESSION: No acute abnormalities are seen Signer Name: Adonis Pineda MD Signed: 01/25/2019 4:30 AM Workstation Name: [id number]
--- NOTE | 2019-01-25 06:12 | Emergency Department Report ---
ED Back Pain/Injury HPI - General Chief Complaint: Abdominal Pain Stated Complaint: ABD PAIN,NAUSEA, BODY PAIN Time Seen by Provider: 01/25/19 02:57 Source: patient Limitations: No Limitations - History of Present Illness Initial Comments: Mr. Valle is a 58-year-old male with history of chronic pancreatitis and lumbar degenerative disc disease who presents with right lower back pain for the past 4 days since Tuesday. Right pain radiating to the right hip. Achy dull sharp pain. Worse with movement. Denies hematuria. Denies vomiting. Denies fever. No history of trauma. Does have a history of degenerative disc disease. Has seen specialists in the past. Currently does not have a primary care physician. MD Complaint: back pain -: Gradual, days(s) (4) Similar Symptoms Previously: Yes Place: home Radiation: buttocks Severity: severe Severity scale (0 -10): 8 Quality: sharp, dull, aching Consistency: constant Improves With: none Worsens With: movement Associated Symptoms: denies other symptoms - Related Data Home Medications Medication Instructions Recorded Confirmed Last Taken Mometasone Furoate [Nasonex] 2 spray NS QDAY 03/17/15 02/21/16 1 Day Ago ~02/20/16 Tamsulosin [Flomax] 0.4 mg PO QDAY 09/05/15 02/21/16 1 Day Ago ~02/20/16 Finasteride [Proscar] 5 mg PO QDAY 02/21/16 02/21/16 1 Day Ago ~02/20/16 Omeprazole 20 mg PO Q12HR 02/21/16 02/21/16 1 Day Ago ~02/20/16 Previous Rx's Medication Instructions Recorded Last Taken Type Oxycodone HCl/Acetaminophen 1 each PO TID PRN #20 tablet 09/05/15 1 Day Ago Rx [Percocet 10/325 mg] ~02/20/16 Ondansetron [Zofran ODT TAB] 8 mg PO Q8HR #10 tab.rapdis 09/27/17 Unknown Rx Budesoni/Formotero 160-4.5(Nf) 2 puff IH BID #1 inha 08/19/18 Unknown Rx [Symbicort 160-4.5 (Nf)] Glimepiride [Amaryl] 2 mg PO QAM #30 tablet 08/19/18 Unknown Rx Losartan [Cozaar] 50 mg PO QDAY #30 tablet 08/19/18 Unknown Rx Simvastatin [Zocor] 20 mg PO QHS #30 tablet 08/19/18 Unknown Rx Promethazine [Phenergan] 25 mg PO Q6HR PRN #10 tab 01/25/19 Unknown Rx oxyCODONE /ACETAMINOPHEN [Percocet 1 tab PO Q6HR PRN #10 tablet 01/25/19 Unknown Rx 5/325] Allergies Allergy/AdvReac Type Severity Reaction Status Date / Time aspirin Allergy Shortness Verified 05/22/15 16:44 of Breath ketorolac tromethamine Allergy Shortness Verified 05/22/15 16:44 [From Toradol] of Breath Penicillins Allergy Unknown Verified 05/22/15 16:44 ED Review of Systems ROS: Stated complaint: ABD PAIN,NAUSEA, BODY PAIN Other details as noted in HPI Comment: All other systems reviewed and negative Constitutional: denies: fever, malaise Gastrointestinal: denies: abdominal pain, nausea, vomiting Musculoskeletal: back pain ED Past Medical Hx - Past Medical History Previous Medical History?: Yes Hx Hypertension: Yes Hx Diabetes: Yes Hx GERD: Yes Hx COPD: Yes Additional medical history: pancreatitis, hyperlipidemia, Chronic Back Pain, Lef t Knee pain - Surgical History Past Surgical History?: Yes Additional Surgical History: Pancreatic stent july 2013/ done at [place] - Social History Smoking Status: Never Smoker Substance Use Type: None - Medications Home Medications: Home Medications Medication Instructions Recorded Confirmed Last Taken Type Mometasone Furoate [Nasonex] 2 spray NS QDAY 03/17/15 02/21/16 1 Day Ago History ~02/20/16 Oxycodone HCl/Acetaminophen 1 each PO TID PRN #20 tablet 09/05/15 02/21/16 1 Day Ago Rx [Percocet 10/325 mg] ~02/20/16 Tamsulosin [Flomax] 0.4 mg PO QDAY 09/05/15 02/21/16 1 Day Ago History ~02/20/16 Finasteride [Proscar] 5 mg PO QDAY 02/21/16 02/21/16 1 Day Ago History ~02/20/16 Omeprazole 20 mg PO Q12HR 02/21/16 02/21/16 1 Day Ago History ~02/20/16 Ondansetron [Zofran ODT TAB] 8 mg PO Q8HR #10 tab.rapdis 09/27/17 Unknown Rx Budesoni/Formotero 160-4.5(Nf) 2 puff IH BID #1 inha 08/19/18 Unknown Rx [Symbicort 160-4.5 (Nf)] Glimepiride [Amaryl] 2 mg PO QAM #30 tablet 08/19/18 Unknown Rx Losartan [Cozaar] 50 mg PO QDAY #30 tablet 08/19/18 Unknown Rx Simvastatin [Zocor] 20 mg PO QHS #30 tablet 08/19/18 Unknown Rx Promethazine [Phenergan] 25 mg PO Q6HR PRN #10 tab 01/25/19 Unknown Rx oxyCODONE /ACETAMINOPHEN [Percocet 1 tab PO Q6HR PRN #10 tablet 01/25/19 Unknown Rx 5/325] ED Physical Exam - General Limitations: No Limitations General appearance: alert, in no apparent distress, other (appears comfortable, appears well and healthy) - Head Head exam: Present: atraumatic, normocephalic - Eye Eye exam: Present: normal appearance - ENT ENT exam: Present: mucous membranes moist - Neck Neck exam: Present: normal inspection, full ROM - Respiratory Respiratory exam: Present: normal lung sounds bilaterally. Absent: respiratory distress, wheezes, rales, rhonchi - Cardiovascular Cardiovascular Exam: Present: regular rate, normal rhythm, normal heart sounds. Absent: systolic murmur, diastolic murmur, rubs, gallop - GI/Abdominal GI/Abdominal exam: Present: soft, normal bowel sounds. Absent: distended, tenderness, guarding, rebound - Rectal Rectal exam: Present: deferred - Extremities Exam Extremities exam: Present: normal inspection - Back Exam Back exam: Present: normal inspection, full ROM. Absent: tenderness, CVA tenderness (R), CVA tenderness (L), muscle spasm, paraspinal tenderness, vertebral tenderness - Neurological Exam Neurological exam: Present: alert, oriented X3 - Psychiatric Psychiatric exam: Present: normal affect, normal mood - Skin Skin exam: Present: warm, dry, intact, normal color. Absent: rash ED Course Vital Signs 01/24/19 01/25/19 23:22 01:11 Temperature 98.6 F Pulse Rate 114 H Respiratory 18 18 Rate Blood Pressure 111/77 O2 Sat by Pulse 98 Oximetry ED Medical Decision Making - Lab Data Result diagrams: 01/24/19 23:28 01/24/19 23:28 Laboratory Results - last 24 hr 01/24/19 01/24/19 01/24/19 00:00 23:28 23:28 WBC 9.6 RBC 5.65 H Hgb 17.5 H Hct 51.6 H MCV 91 MCH 31 MCHC 34 RDW 13.3 Plt Count 197 Lymph % (Auto) 39.3 H [place] % (Auto) 7.1 Eos % (Auto) 2.9 Baso % (Auto) 0.5 Lymph # 3.8 [place] # 0.7 Eos # 0.3 Baso # 0.0 Seg Neutrophils % 50.2 Seg Neutrophils # 4.8 Sodium 141 Potassium 3.5 L Chloride 102.7 Carbon Dioxide 24 Anion Gap 18 BUN 14 Creatinine 0.9 Estimated GFR > 60 BUN/Creatinine Ratio 16 Glucose 138 H Calcium 9.4 Total Bilirubin 0.50 AST 17 ALT 20 Alkaline Phosphatase 100 Total Protein 7.4 Albumin 4.3 Albumin/Globulin Ratio 1.4 Lipase 60 Urine Color Yellow Urine Turbidity Clear Urine pH 5.0 Ur Specific [place] 1.026 Urine Protein 30 mg/dl Urine Glucose (UA) 150 Urine Ketones Neg Urine Blood Sm Urine Nitrite Neg Urine Bilirubin Neg Urine Urobilinogen < 2.0 Ur Leukocyte Esterase Neg Urine WBC (Auto) 2.0 Urine RBC (Auto) 1.0 U Epithel Cells (Auto) 3.0 Urine Mucus Few - Radiology Data Radiology results: report reviewed CT abdomen and pelvis without acute process according to radiology impression - Medical Decision Making Mr. Valle presents with right lower back pain radiating to the buttock suggestive of radicular pain due to lumbar DDD. He is neurologically intact. No red flags to suggest emergent cause such as fever, drug abuse, bowel bladder incontinence, unexplained weight loss, or trauma CBC chemistry urinalysis all within normal limits. Prescribed Percocet and promethazine. His requested medication for nausea. She also requested medicine for insomnia. Strongly encouraged evaluation by a primary physician. I have given referral to a primary care provider. He is discharged home in stable condition Critical care attestation.: If time is entered above; I have spent that time in minutes in the direct care of this critically ill patient, excluding procedure time. ED Disposition Clinical Impression: Back pain Disposition: DC-01 TO HOME OR SELFCARE Is pt being admited?: No Does the pt Need Aspirin: No Condition: Stable Instructions: Acute Low Back Pain (ED) Prescriptions: oxyCODONE /ACETAMINOPHEN [Percocet 5/325] 1 tab PO Q6HR PRN #10 tablet PRN Reason: Pain Promethazine [Phenergan] 25 mg PO Q6HR PRN #10 tab PRN Reason: Nausea Referrals: ROSETTE MITCHELL MD [Staff Physician] - 3-5 Days Forms: Work/School Release Form(ED)
== END 2019-01-25 06:15 | disposition home or self-care (01) ==
LOC: ED 22:47
DX: M54.5 Low back pain (principal); I10 Essential (primary) hypertension; E11.9 Type 2 diabetes mellitus without complications; K21.9 Gastro-esophageal reflux disease without esophagitis; J44.9 Chronic obstructive pulmonary disease, unspecified; E78.5 Hyperlipidemia, unspecified; M25.562 Pain in left knee; G89.29 Other chronic pain; Z88.6 Allergy status to analgesic agent; Z88.0 Allergy status to penicillin; Z79.899 Other long term (current) drug therapy; Z88.5 Allergy status to narcotic agent
CPT/HCPCS: 36415; 74176; 80053; 81001; 83690; 85025; 96374; 96375; 99284; J2270; J2405

== ENCOUNTER 2019-04-09 03:29 | Emergency (ER) | payer SELFPAY ==
[2019-04-09] MEDS ORDERED: diphenhydrAMINE 25 MG CAP PO ONE (05:35)
[2019-04-09] MEDS ORDERED: ACETAMINOPHEN 500 MG TAB PO ONE (05:36)
--- NOTE | 2019-04-09 05:44 | Emergency Department Report ---
[facility] Chief Complaint: Eye Problems Stated Complaint: BILATERAL EYE DISCHARGE Time Seen by Provider: 04/09/19 05:24 Duration: 2 Days Side: Bilateral Severity: moderate Symptoms: Yes Eye Itching, Yes Eye Redness, Yes Mucous Drainage, Yes Purulent Drainage, Yes H/O Allergic Rhinitis, No Eye Pain (burning ), No Blurred Vision, No Preceding URI, No Contact Lens Use, No Trauma, No Fever, No Headache Other History: Mr. Gomez is s 59 y/o aam who presents for bilat eye itching redness and burng pt has hx of recurrent sinusitis ,states symptoms are exacerbated by rubbing eyes, there is associated rhinorrhea yellow clear and sinus pressure. pt denies fever or chills. pt denies dizziness no lightheadedness no n/v no wheezing or stridor. no photophobia no loss or decr ease in vision. ED Review of Systems ROS: Stated complaint: BILATERAL EYE DISCHARGE Other details as noted in HPI Constitutional: denies: chills, fever Eyes: eye pain (bilat eye burning itching ), other (bilat eye drainage ). denies: eye discharge, vision change ENT: congestion, other (sinus pain and drainage). denies: ear pain, throat pain Respiratory: denies: cough, shortness of breath, wheezing Cardiovascular: denies: chest pain, palpitations Endocrine: no symptoms reported Gastrointestinal: denies: abdominal pain, nausea, diarrhea Genitourinary: denies: urgency, dysuria Musculoskeletal: denies: back pain, joint swelling, arthralgia Skin: denies: rash, lesions Neurological: denies: headache, weakness, paresthesias Psychiatric: denies: anxiety, depression Hematological/Lymphatic: denies: easy bleeding, easy bruising ED Past Medical Hx - Past Medical History Previous Medical History?: Yes Hx Hypertension: Yes Hx Diabetes: Yes Hx GERD: Yes Hx COPD: Yes Additional medical history: pancreatitis, hyperlipidemia, Chronic Back Pain, Left Knee pain - Surgical History Past Surgical History?: Yes Additional Surgical History: Pancreatic stent july 2013/ done at [place] - Social History Smoking Status: Current Every Day Smoker Substance Use Type: None - Medications Home Medications: Home Medications Medication Instructions Recorded Confirmed Last Taken Type Mometasone Furoate [Nasonex] 2 spray NS QDAY 03/17/15 02/21/16 1 Day Ago History ~02/20/16 Oxycodone HCl/Acetaminophen 1 each PO TID PRN #20 tablet 09/05/15 02/21/16 1 Day Ago Rx [Percocet 10/325 mg] ~02/20/16 Tamsulosin [Flomax] 0.4 mg PO QDAY 09/05/15 02/21/16 1 Day Ago History ~02/20/16 Finasteride [Proscar] 5 mg PO QDAY 02/21/16 02/21/16 1 Day Ago History ~02/20/16 Omeprazole 20 mg PO Q12HR 02/21/16 02/21/16 1 Day Ago History ~02/20/16 Ondansetron [Zofran ODT TAB] 8 mg PO Q8HR #10 tab.rapdis 09/27/17 Unknown Rx Budesoni/Formotero 160-4.5(Nf) 2 puff IH BID #1 inha 08/19/18 Unknown Rx [Symbicort 160-4.5 (Nf)] Glimepiride [Amaryl] 2 mg PO QAM #30 tablet 08/19/18 Unknown Rx Losartan [Cozaar] 50 mg PO QDAY #30 tablet 08/19/18 Unknown Rx Simvastatin [Zocor] 20 mg PO QHS #30 tablet 08/19/18 Unknown Rx Promethazine [Phenergan] 25 mg PO Q6HR PRN #10 tab 01/25/19 Unknown Rx oxyCODONE /ACETAMINOPHEN [Percocet 1 tab PO Q6HR PRN #10 tablet 01/25/19 Unknown Rx 5/325] Acetaminophen [Tylenol] 650 mg PO Q6H PRN #30 capsule 04/09/19 Unknown Rx Ciprofloxacin HCl [Ciloxan] 2 drops OP Q3H 10 Days #5 ml 04/09/19 Unknown Rx Clindamycin [Clindamycin CAP] 300 mg PO Q8H 10 Days #30 cap 04/09/19 Unknown Rx Ketotifen Fumarate [Zaditor] 1 drop OP BID PRN #5 ml 04/09/19 Unknown Rx [facility] Exam - Exam General: Vital signs noted. No distress. Alert and acting appropriately. Eye Exam: Right Mucous Discharge, Right Purulent Discharge, Both Injection, Both EOMI, Neither Chemosis, Neither Abnormal Pupil, Neither Eye Foreign Body, Neither Lid Foreign Body, Neither Photophobia HEENT: Yes Nasal Congestion, No Pharyngeal Erythema Remainder of HEENT: Normal Lungs: Yes Clear Lung Sounds, Yes Good Air Exchange, No Wheezes, No Stridor, No Cough, No Nasal Flaring, No Retractions, No Use of Accessory Muscles ED Course Vital Signs 04/09/19 03:32 Temperature 98.3 F Pulse Rate 105 H Respiratory 18 Rate Blood Pressure 147/97 O2 Sat by Pulse 97 Oximetry ED Medical Decision Making - Medical Decision Making this is conjunctivitis , sinusitis, plan: cipro ophthal, tylenol, zaditor, clindamycin for sinusitis pt is allergic to pcn, will follow up with ophthalmology, and pcp in 2-3 days. pt verbalized agreement and understanding of discharge plan, pt vital signs noted as improved HR: 89, 148/72, pt a/o x 3 , ambulatory with steady gait at this time. Critical care attestation.: If time is entered above; I have spent that time in minutes in the direct care of this critically ill patient, excluding procedure time. ED Disposition Clinical Impression: Conjunctivitis Qualifiers: Conjunctivitis type: acute Acute conjunctivitis type: bacterial Laterality: bilateral Qualified Code(s): H10.33 - Unspecified acute conjunctivitis, bilateral Sinusitis Qualifiers: Sinusitis location: maxillary Chronicity: acute Recurrence: recurrent Qualified Code(s): J01.01 - Acute recurrent maxillary sinusitis Disposition: TO HOME OR SELFCARE Is pt being admited?: No Does the pt Need Aspirin: No Condition: Stable Instructions: Conjunctivitis (ED), Sinusitis (ED) Prescriptions: Ciprofloxacin HCl [Ciloxan] 2 drops OP Q3H 10 Days #5 ml Clindamycin [Clindamycin CAP] 300 mg PO Q8H 10 Days #30 cap Acetaminophen [Tylenol] 650 mg PO Q6H PRN #30 capsule PRN Reason: pain Ketotifen Fumarate [Zaditor] 1 drop OP BID PRN #5 ml PRN Reason: itching Referrals: BRYAN SCHMIDT MD [Staff Physician] - 3-5 Days [facility] [Provider Group] - 3-5 Days Forms: Work/School Release Form(ED) Time of Disposition: 05:56
[2019-04-09 06:18] VITALS: BP 151/94
== END 2019-04-09 06:10 | disposition home or self-care (01) ==
LOC: ED 03:29
DX: H10.9 Unspecified conjunctivitis (principal); J32.9 Chronic sinusitis, unspecified; I10 Essential (primary) hypertension; E11.9 Type 2 diabetes mellitus without complications; K21.9 Gastro-esophageal reflux disease without esophagitis; J44.9 Chronic obstructive pulmonary disease, unspecified; F17.200 Nicotine dependence, unspecified, uncomplicated; G89.29 Other chronic pain; Z79.899 Other long term (current) drug therapy; Z98.890 Other specified postprocedural states; Z88.6 Allergy status to analgesic agent; Z88.0 Allergy status to penicillin

== ENCOUNTER 2020-10-29 10:28 | Outpatient (CLI) | payer OTHER ==
--- NOTE | 2020-10-29 11:43 | XRay Report ---
XR tibia fibula 2V LT INDICATION / CLINICAL INFORMATION: TIBIA/FIBULA LEFT PAIN COMPARISON: None available. FINDINGS/IMPRESSION: No acute fracture or malalignment. Bone mineralization is within normal limits. Soft tissues are unre markable. Signer Name: Piotr Corea MD Signed: 10/29/2020 11:38 AM Workstation Name: [id number]
--- NOTE | 2020-10-29 11:51 | XRay Report ---
LUMBOSACRAL SPINE 3 VIEWS INDICATION: BACK PAIN. COMPARISON: None. IMPRESSION: Normal alignment. Mild discogenic DJD and facet arthropathy are identified at L2-3, L3- 4, L4-5 and L5-S1. No acute osseous or soft tissue abnormality. Signer Name: Toan Santillan Jr, MD Signed: 10/29/2020 11:46 AM Workstation Name: [id number]
== END 2020-10-29 10:29 | disposition home or self-care (01) ==
LOC: XRAY 10:28
PROVIDERS: ATTEND Internal Medicine
DX: M47.817 Spondylosis without myelopathy or radiculopathy, lumbosacral region (principal); M79.662 Pain in left lower leg
CPT/HCPCS: 72100

== ENCOUNTER 2021-03-13 12:28 | Outpatient (CLI) | payer BC ==
--- NOTE | 2021-03-13 15:10 | XRay Report ---
Left knee, 3 views HISTORY: Pain COMPARISON: None FINDINGS: No acute fracture or malalignment. Minimal osteoarthritis with mild joint space narrowing o f the medial compartment and tiny osteophytes. No sizable joint effusion. Soft tissues are unremarkab le. Signer Name: Piotr Corea MD Signed: 03/13/2021 3:06 PM Workstation Name: [id number]
--- NOTE | 2021-03-13 15:10 | XRay Report ---
Left hip radiograph, 2 views HISTORY: Pain COMPARISON: None FINDINGS: Bones/joints: Mild osteoarthritis of both hips. No acute fracture or malalignment. Soft tissues: No significant abnormality. Signer Name: Piotr Corea MD Signed: 03/13/2021 3:05 PM Workstation Name: [id number]
== END 2021-03-13 12:29 | disposition home or self-care (01) ==
LOC: XRAY 12:28
PROVIDERS: ATTEND Pain Medicine Interventional Pain Medicine
DX: M17.12 Unilateral primary osteoarthritis, left knee (principal); M25.762 Osteophyte, left knee; M16.0 Bilateral primary osteoarthritis of hip